=== PATIENT | female | born 1985 | race African-American/Black ===

== ENCOUNTER 2017-11-30 20:53 | Emergency (ER) | payer SELFPAY ==
[~2017-11-30 20:53] MED LIST: DICY1TAB26 PO; PROM25SU8 PO; Z.0.NO CURRENT MEDS
[2017-11-30 21:19] VITALS: BP 133/80; PULSE 86; RESP 18; TEMP 98.5; O2SAT 100
--- NOTE | 2017-11-30 21:54 | PD ---
HPI Chief Complaint: Abdominal Pain Time Seen by Provider: 21:34 Travel History International Travel<30 days: No Contact w/Intl Traveler<30days: No Traveled to known affect area: No History of Present Illness HPI 32yo F with PMH of ovarian cysts presents to the lower pelvic pain for at least 3 days. Pt said she has history of multiple ovarian cysts, more on right side. Pain is sharp, intermittent and associated with nausea and sometimes vomiting. Denies any pain in the abdomen, dysuria, hematuria, vaginal discharge. Pt is on her menstrual period. Said she took advil PM which helps a little. Denies any PSH. PFSH Past Medical History Blood Disorders: No Cancer: No Cardiovascular Problems: No Diabetes: No Diminished Hearing: No Gastrointestinal Disorders: Yes (UMBILICAL HERNIA ) Immune Disorder: No Musculoskeletal: No Neurologic: No Psychiatric: No Reproductive: Yes (FIBRIODS IN OVARIES/tumors on cervix) Respiratory: No Immunizations Current: Yes Thyroid Disease: No ?: Not : 0 Para: 0 Miscarriage: 0 : 0 Past Surgical History Abdominal Surgery: Yes (HERNIA REPAIR UMBILICAL) Other Surgery: Yes Social History Alcohol Use: Yes (OCCASIONALLY) Tobacco Use: No (DENIES) Substance Use: Yes (WEED) Allergies-Medications (Allergen,Severity, Reaction): Coded Allergies: lactose (Unverified Allergy, Severe, 11/30/17) Reported Meds & Prescriptions Reported Meds & Active Scripts Active No Active Prescriptions or Reported Medications Review of Systems Except as stated in HPI: all other systems reviewed are Neg Physical Exam Narrative GENERAL: 32yo F in mild distress. SKIN: Focused skin assessment warm/dry. HEAD: Atraumatic. Normocephalic. EYES: Pupils equal and round. No scleral icterus. No injection or drainage. ENT: No nasal bleeding or discharge. Mucous membranes pink and moist. NECK: Trachea midline. No JVD. CARDIOVASCULAR: Regular rate and rhythm. No murmur appreciated. RESPIRATORY: No accessory muscle use. Clear to auscultation. Breath sounds equal bilaterally. GASTROINTESTINAL: Abdomen soft, non-tender, nondistended. No RLQ ttp. TTP pubic symphysis more on right. No rebound tenderness or guarding. PELVIC: Small amount of reddish mucous discharge. No CMT or adnexal tenderness bilaterally. MUSCULOSKELETAL: No obvious deformities. No clubbing. No cyanosis. No edema. NEUROLOGICAL: Awake and alert. No obvious cranial nerve deficits. Motor grossly within normal limits. Normal speech. PSYCHIATRIC: Appropriate mood and affect; insight and judgment normal. Data Data Last Documented VS Vital Signs Date Time Temp Pulse Resp B/P (MAP) Pulse Ox O2 Delivery O2 Flow Rate FiO2 11/30/17 21:19 98.5 86 18 133/80 (97) 100 Orders Orders Complete Blood Count With Diff (11/30/17 21:46) Basic Metabolic Panel (Bmp) (11/30/17 21:46) Gc And Chlamydia Pcr (11/30/17 21:46) Wet Prep Profile (11/30/17 21:46) Urinalysis - C+S If Indicated (11/30/17 21:46) Ed Urine Pregnancytest Poc (11/30/17 21:46) Ketorolac Inj (Toradol Inj) (11/30/17 22:00) Us Pelvis Comp W Dop Transvag (11/30/17 21:46) Metronidazole (Flagyl) (12/01/17 00:45) Labs Laboratory Tests Test 11/30/17 21:50 11/30/17 23:20 11/30/17 23:30 White Blood Count 4.3 TH/MM3 Red Blood Count 4.28 MIL/MM3 Hemoglobin 12.8 GM/DL Hematocrit 39.0 % Mean Corpuscular Volume 91.1 FL Mean Corpuscular Hemoglobin 29.9 PG Mean Corpuscular Hemoglobin Concent 32.9 % Red Cell Distribution Width 13.8 % Platelet Count 226 TH/MM3 Mean Platelet Volume 7.8 FL Neutrophils (%) (Auto) 30.8 % Lymphocytes (%) (Auto) 51.5 % Monocytes (%) (Auto) 8.1 % Eosinophils (%) (Auto) 7.4 % Basophils (%) (Auto) 2.2 % Neutrophils # (Auto) 1.3 TH/MM3 Lymphocytes # (Auto) 2.2 TH/MM3 Monocytes # (Auto) 0.3 TH/MM3 Eosinophils # (Auto) 0.3 TH/MM3 Basophils # (Auto) 0.1 TH/MM3 CBC Comment DIFF FINAL Differential Comment Blood Urea Nitrogen 10 MG/DL Creatinine 0.86 MG/DL Random Glucose 115 MG/DL Calcium Level 8.5 MG/DL Sodium Level 144 MEQ/L Potassium Level 3.9 MEQ/L Chloride Level 111 MEQ/L Carbon Dioxide Level 29.3 MEQ/L Anion Gap 4 MEQ/L Estimat Glomerular Filtration Rate 94 ML/MIN Urine Color LIGHT-YELLOW Urine Turbidity HAZY Urine pH 6.0 Urine Specific [place] 1.013 Urine Protein NEG mg/dL Urine Glucose (UA) NEG mg/dL Urine Ketones NEG mg/dL Urine Occult Blood LARGE Urine Nitrite NEG Urine Bilirubin NEG Urine Urobilinogen LESS THAN 2.0 MG/DL Urine Leukocyte Esterase NEG Urine RBC 3 /hpf Urine WBC 5 /hpf Urine Squamous Epithelial Cells 14 /hpf Urine Amorphous Sediment RARE Urine Bacteria FEW /hpf Urine Mucus FEW /lpf Microscopic Urinalysis Comment CULT NOT INDICATED Clue Cells (Wet Prep) PRESENT Vaginal Trichomonas (Wet Prep) NONE SEEN Vaginal Yeast (Wet Prep) NONE SEEN MDM Medical Decision Making Medical Screen Exam Complete: Yes Emergency Medical Condition: Yes Differential Diagnosis Ovarian cysts vs. ovarian torsion vs. tubo ovarian abscess Narrative Course 32yo F here with pelvic pain. No abdominal pain on exam. VS stable. Labs reviewed, no leukocytosis. BMP unremarkable. Urine negative. UA showed large leukocyte. WBC 15. Culture not indicated. Wet prep positive for clue cells, pt given first dose of metronidazole. US pelvis showed no mass or significant cystic lesions with normal blood flow in each ovary. Normal examination. Pt given toradol with improvement of pain. Return precautions given. Diagnosis Primary Impression: Bacterial vaginosis Patient Instructions: General Instructions Departure Forms: Tests/Procedures Additional Instructions: Please follow up with your watch crystal cutter in 2-3 days. Return to the ED if symptoms worsen. Med/Other Pt SpecificInfo: Prescription(s) given Scripts Ibuprofen (Ibuprofen) 600 Mg Tab 600 MG PO Q8HR Y for PAIN for 5 Days, TAB 0 Refills Prov: Paola Willett DO 12/01/17 Metronidazole (Metronidazole) 500 Mg Tab 500 MG PO BID for Infection for 7 Days, #14 TAB 0 Refills Prov: Paola Willett DO 12/01/17 Disposition: 01 DISCHARGE HOME Condition: Stable Paola Willett DO November 30, 2017 21:54
[2017-11-30] MEDS ORDERED: KETOROLAC TROMETHAMINE 30 MG/ML (IVP) VIAL IV PUSH ONE (22:00)
[2017-11-30 22:04] LABS: AUTOMATED NEUTROPHIL # 1.3 TH/MM3 (1.8-7.7); BASOPHIL # 0.1 TH/MM3 (0-0.2); BASOPHIL % 2.2 % (0.0-2.0); EOSINOPHIL # 0.3 TH/MM3 (0-0.4); EOSINOPHIL % 7.4 % (0.0-4.0); HEMOGLOBIN 12.8 GM/DL (11.6-15.3); LYMPH % 51.5 % (9.0-44.0); LYMPHOCYTE # 2.2 TH/MM3 (1.0-4.8); MEAN CELL VOLUME 91.1 FL (80.0-100.0); MEAN CORPUSCULAR HEMOGLOBIN 29.9 PG (27.0-34.0); MEAN CORPUSCULAR HGB CONC 32.9 % (32.0-36.0); MEAN PLATELET VOLUME 7.8 FL (7.0-11.0); MONO % 8.1 % (0.0-8.0); MONOCYTE # 0.3 TH/MM3 (0-0.9); NEUT % 30.8 % (16.0-70.0); PLATELET COUNT 226 TH/MM3 (150-450); RED BLOOD COUNT 4.28 MIL/MM3 (4.00-5.30); RED CELL DISTRIBUTION WIDTH 13.8 % (11.6-17.2); WHITE BLOOD COUNT 4.3 TH/MM3 (4.0-11.0)
[2017-11-30 22:17] LABS: BICARBONATE 29.3 MEQ/L (21.0-32.0); CALCIUM 8.5 MG/DL (8.5-10.1); CREATININE 0.86 MG/DL (0.50-1.00)
--- NOTE | 2017-11-30 23:27 | RADRPT ---
EXAM DATE/TIME: 11/30/2017 22:19 [facility] COMPARISON: No previous studies available for comparison. INDICATIONS : Lower abdominal pain. MEDICAL HISTORY : Umbilical hernia. Fibroids. Ovarian cysts. SURGICAL HISTORY : Umbilical hernia repair. ENCOUNTER: Initial ACUITY: 3 days PAIN SCORE: 8/10 LOCATION: Bilateral pelvis MEASUREMENTS: UTERUS: 8.4 x 3.5 x 5.3 cm ENDOMETRIAL STRIPE: 3 mm RIGHT OVARY: 3.8 x 2.3 x 3.0 cm LEFT OVARY: 4.0 x 2.5 x 3.3 cm FINDINGS: UTERUS: The myometrium has homogeneous echotexture without mass. RIGHT OVARY: Ovary contains no mass or significant cystic lesion.Blood flow within the normal range. LEFT OVARY: Ovary contains no mass or significant cystic lesion.Blood flow within the normal range. MISCELLANEOUS: No free fluid. CONCLUSION: Normal examination. Javy Carolina Jr., MD on November 30, 2017 at 23:22 Board Certified Radiologist. This report was verified electronically.
[2017-11-30 23:45] LABS: AMORPHOUS SEDIMENT, URINE RARE; BACTERIA, URINE FEW /hpf; BILIRUBIN, URINE NEG (NEG); BLOOD, URINE LARGE (NEG); GLUCOSE,URINE NEG (NEG); KETONE, URINE NEG (NEG); MUCUS URINE FEW /lpf (OCC); NITRITE,URINE NEG (NEG); SQUAMOUS EPITHELIAL CELL URINE 14 /hpf (0-5); URINE COLOR LIGHT-YELLOW (YELLW/STRAW); URINE LEUKOCYTE ESTERASE NEG (NEG)
[2017-12-01] MEDS ORDERED: metroNIDAZOLE 500 MG TAB PO ONE (00:45)
[2017-12-01] MEDS ORDERED: IBUP-232 PO (00:53)
[2017-12-01] MEDS ORDERED: METR1TAB76 PO (00:53)
== END 2017-12-01 01:56 | disposition home or self-care (01) ==
LOC: NEPC 20:53
DX: N76.0 Acute vaginitis (principal); B96.89 Other specified bacterial agents as the cause of diseases classified elsewhere
CPT/HCPCS: 76830; 76856; 80048; 81001; 84703; 85025; 87210; 87491; 87591; 93975; 96374; 99284; J1885